=== PATIENT | male | born 1990 | race Caucasian/White ===

== ENCOUNTER 2020-01-01 01:49 | Emergency (ER) | payer MEDICAID ==
[~2020-01-01] VITALS: Ht 167.6 cm; Wt 104.3 kg
[2020-01-01 01:55] VITALS: BP_SYST 162
--- NOTE | 2020-01-01 01:55 | NUR ---
Patient triaged and placed in waiting room. VSS and patient appears in no acute distress at this time. Accompanied by self, awaiting available bed, and MD notified of need for MSE.
--- NOTE | 2020-01-01 08:00 | NUR ---
Patient to ER bed 6 to gown for evaluation. Side rails up. Report given to BELINDA Barajas.
--- NOTE | 2020-01-01 08:10 | NUR ---
MD GUERRIER AT BEDSIDE ASSESSING PT
--- NOTE | 2020-01-01 09:05 | NUR ---
PT IS RESTING WELL IN BED 6. PT WALKED INTO THE ER AND INTO HIS GURNEY. NO TREMORS NOTED. PT IS CALM AND SLEEPING NOW. AWAITING FURTHER ORDERS.
[2020-01-01] MEDS ORDERED: NACL 0.9% 1,000 ML IV ONE (09:45)
[2020-01-01] MEDS ORDERED: LORazepam 2 MG/ML VIAL IVP ONE (09:45)
--- NOTE | 2020-01-01 10:10 | NUR ---
IV ACCESS OBTAINED IN THE LEFT HAND IN ONE ATTEMPT WITH 22G. IV FLUIDS INFUSING NOW.
[2020-01-01 10:14] LABS: BASOPHILS # (AUTO) 0.1 K/uL (0.0-0.2); BASOPHILS % (AUTO) 1.5 % (0.0-2.0); EOSINOPHILS # (AUTO) 0.4 K/uL (0.0-0.4); EOSINOPHILS % (AUTO) 5.5 % (0.0-4.0); HEMATOCRIT 47.8 % (36-54); HEMOGLOBIN 16.8 g/dL (14.0-18.0); LYMPHOCYTES % (AUTO) 40.1 % (20.5-51.5); MEAN CORPUSCULAR HEMOGLOBIN 33 pg (27-31); MEAN CORPUSCULAR HGB CONC 35 % (32-36); MEAN CORPUSCULAR VOLUME 94 fL (79.0-98.0); MONOCYTES # (AUTO) 0.5 K/uL (0.0-1.0); NEUTROPHILS # (AUTO) 3.4 K/uL (1.8-7.7); NEUTROPHILS % (AUTO) 45.9 % (40.0-70.0); PLATELET COUNT (AUTO) 201 K/uL (130-430); RED BLOOD CELL COUNT(AUTO) 5.08 MIL/uL (4.2-6.2); RED CELL DISTRIBUTION WIDTH 12.7 % (9.0-15.0); WHITE BLOOD COUNT (AUTO) 7.4 K/uL (4.8-10.8)
[2020-01-01 10:29] LABS: ANION GAP 10 (5-15); CALCIUM 8.8 mg/dL (8.4-11.0); CHLORIDE 101 mmol/L (98-107); CREATININE 0.82 mg/dL (0.55-1.30); GLUCOSE 80 mg/dL (70-99); SODIUM SERUM 135 mmol/L (136-145); UREA NITROGEN, BLOOD 13 mg/dL (8-21)
[2020-01-01 10:30] LABS: INR 1.2 (0.80-1.20)
[2020-01-01 10:32] LABS: GFR AFRICAN AMERICAN 145 mL/min (>90)
[2020-01-01 10:35] LABS: ALANINE AMINOTRANSFERASE 237 U/L (12-78); ALCOHOL, BLOOD 6 mg/dL (<10); AMYLASE 31 U/L (0-100); ASPARTATE AMINOTRANSFERASE 120 U/L (10-37); LIPASE 100 U/L (73-393); TOTAL BILIRUBIN 0.8 mg/dL (0.0-1.0)
[2020-01-01 10:48] LABS: ACETONE, SERUM SMALL (NEGATIVE)
--- NOTE | 2020-01-01 11:33 | NUR ---
HAS SPOKEN WITH PT ABOUT HIS CYST ON ONE OF HIS LUNGS. PT IS EDUCATED ABOUT THE CYST AND TO FOLLOW UP WITH HIS PMD.
--- NOTE | 2020-01-01 12:13 | NUR ---
PT CAN BE DC HOME ACCORDING TO MD GUERRIER. PT IS SLEEPING SOUNDLY AND RN IS ALLOWING HIM TO REST A BIT LONGER.
--- NOTE | 2020-01-01 12:45 | NUR ---
Patient given written and verbal discharge instructions and verbalizes understanding. ER MD discussed with patient the results and treatment provided. Patient in stable condition. ID arm band removed. IV catheter removed intact and dressing applied, no active bleeding. Rx of ativan and prilosec given. Patient educated on pain management and to follow up with PMD. Pain Scale 0/10. Opportunity for questions provided and answered. Medication side effect fact sheet provided.
[2020-01-01 12:50] VITALS: BP_SYST 133
== END 2020-01-01 12:50 | disposition home or self-care (01) ==
LOC: SED 01:49
DX: F10.10 Alcohol abuse, uncomplicated (principal); R91.1 Solitary pulmonary nodule; F41.9 Anxiety disorder, unspecified; F32.9 Major depressive disorder, single episode, unspecified; F43.10 Post-traumatic stress disorder, unspecified; F12.90 Cannabis use, unspecified, uncomplicated; F17.290 Nicotine dependence, other tobacco product, uncomplicated; Z88.1 Allergy status to other antibiotic agents; Z71.6 Tobacco abuse counseling; Z90.49 Acquired absence of other specified parts of digestive tract; Y90.0 Blood alcohol level of less than 20 mg/100 ml
CPT/HCPCS: 36415; 71045; 71250; 80053; 81002; 82009; 82140; 82150; 83605; 83690; 84484; 85025; 85610; 85730; 96374; 99285; G0482; J2060; J7030